=== PATIENT | male | born 1965 | race Caucasian/White ===

== ENCOUNTER 2019-10-23 10:55 | Outpatient (CLI) | payer OTHER, SELFPAY ==
--- NOTE | ~2019-10-23 | MR_ITS ---
EXAMINATION: MR thoracic spine wo con EXAM DATE: 10/23/2019 11:44 INDICATION: Thoracic pain. TECHNIQUE: Multi-sequential, multiplanar MR images of the thoracic spine were obtained without contra st. Sagittal T1, T2, T2 fat saturation, axial T2 weighted images reviewed. There is no prior study for comparison. FINDINGS: Several small hemangiomas. There is mild thoracic scoliosis. Mild thoracic disc disease and facet arthropathy. Several small disc protrusions. No significant central canal or neural foraminal stenosis. Paraspinal soft tissue is unremarkable. The spinal cord signal intensity and intrinsic morp hology is normal. IMPRESSION: Mild thoracic scoliosis and spondylosis. Reviewed, dictated and finalized at location B. RAM ARCHITECT
== END 2019-10-23 10:56 | disposition home or self-care (01) ==
PROVIDERS: PCP Internal Medicine; Visit Provider Internal Medicine
DX: R52 Pain, unspecified (principal); M41.9 Scoliosis, unspecified; M47.894 Other spondylosis, thoracic region
CPT/HCPCS: 72146